=== PATIENT | female | born 1940 | race Caucasian/White ===

== ENCOUNTER 2017-05-23 15:17 | Inpatient (IN) | payer BC ==
[~2017-05-23] VITALS: Ht 160 cm; Wt 68.5 kg
[2017-05-23] MEDS ORDERED: INDERIDE 40/1 TABLET PO (17:01)
[2017-05-23] MEDS ORDERED: SYNTHROID50 MCG PO (17:01)
[2017-05-23] MEDS ORDERED: LEXAPRO5 MG PO (17:01)
[2017-05-23] MEDS ORDERED: PRILOSEC20 MG PO (17:02)
[2017-05-23] MEDS ORDERED: ASPIR 8181 M1 PO (17:02)
[2017-05-23] MEDS ORDERED: VITAMIN D31000 UNI2 PO (17:03)
[2017-05-23] MEDS ORDERED: VITAMIN E400 UNIT PO (17:03)
[2017-05-23 17:08] LABS: CHLORIDE 103 mEq/L (99-109)
[2017-05-23 17:09] LABS: POTASSIUM 4.4 mEq/L (3.7-5.4); SODIUM 139 mEq/L (136-147)
[2017-05-23 17:10] LABS: GLUCOSE 141 mg/dL (70-99)
[2017-05-23 17:12] LABS: ANION GAP 11 MEQ/L (2-14)
[2017-05-23 17:13] LABS: HEMATOCRIT 40.7 % (36.0-46.0); MCH 31.3 PG (29.0-34.0); MCHC 30.7 G/DL (30.0-36.0); MCV 101.8 FL (83-99); MEAN PLAT.VOLUME 9.5 uM^3 (9.5-12.4); PLATELET COUNT 141 K/uL (156-360); RBC DIS.WIDTH-CV 14.6 % (11.8-14.6); RBC DIS.WIDTH-SD 52.4 % (39-53)
[2017-05-23 17:14] LABS: GFR ESTIMATE (CALCULATED) > 59 mL/min/
[2017-05-23 17:15] LABS: UREA NITROGEN (BUN) 15 mg/dL (9-23); WHITE BLOOD COUNT 179.1 K/uL (4.1-10.2)
[2017-05-23 20:03] VITALS: BP 123/70
[2017-05-23 23:46] VITALS: BP 104/57
[2017-05-24 03:55] VITALS: BP 113/54
[2017-05-24 07:37] VITALS: BP 129/60
[2017-05-24 13:44] LABS: HEMATOCRIT 37.2 % (36.0-46.0); MCHC 30.4 G/DL (30.0-36.0); MCV 101.9 FL (83-99); MEAN PLAT.VOLUME 9.4 uM^3 (9.5-12.4); PLATELET COUNT 141 K/uL (156-360); RBC DIS.WIDTH-SD 52.6 % (39-53); RED BLOOD COUNT 3.65 M/uL (3.80-5.20)
[2017-05-24 13:45] LABS: INTER. NORMALIZED RATIO 1.1; PROTHROMBIN TIME 11.8 SEC (10.2-12.9)
[2017-05-24 14:47] VITALS: BP 125/66
[2017-05-24 15:29] VITALS: BP 122/68
[2017-05-24 19:33] VITALS: BP 106/57
[2017-05-25 00:03] VITALS: BP 108/55
[2017-05-25 03:26] VITALS: BP 104/55
[2017-05-25 07:44] VITALS: BP 125/63
[2017-05-25 17:10] VITALS: BP 147/85
[2017-05-25 23:11] VITALS: BP 118/58
[2017-05-26 07:46] VITALS: BP 145/66
[2017-05-26 16:45] VITALS: BP 153/71
[2017-05-27 00:09] VITALS: BP 114/62
[2017-05-27 07:24] VITALS: BP 131/74
[2017-05-27 07:45] VITALS: BP 131/74
[2017-05-27] MEDS ORDERED: FLEXERIL10 MG PO (07:52)
[2017-05-27] MEDS ORDERED: HYDROCODON-ACE1 EAC7 PO (07:52)
[2017-05-27 11:22] VITALS: BP 129/80
[2017-05-27 15:40] VITALS: BP 140/75
[2017-05-27 16:25] VITALS: BP 140/75
[2017-05-28 00:14] VITALS: BP 133/73
[2017-05-28 07:00] VITALS: BP 146/98
[2017-05-28 12:21] VITALS: BP 138/74
[2017-05-28] MEDS ORDERED: GABAPENTIN100 MG PO (12:59)
[2017-05-28 15:42] VITALS: BP 166/79
[2017-05-31 11:56] LABS: Ristocetin Cofactor Activity 158 % (42-200); VON WILLEBRAND FACTOR ANTIGEN 203 % (50-217); vWB APTT 24 sec (22-34)
== END 2017-05-28 19:05 | DRG 908 ==
LOC: EME 15:17 → 3EAST 16:38 → EDOF 16:38 → ENRESERV 17:06 → 3EAST 19:16
PROVIDERS: Anesthesiology; Emergency Medicine; Neurological Surgery
DX: M96.840 Postprocedural hematoma of a musculoskeletal structure following a musculoskeletal system procedure (principal); G95.29 Other cord compression; E03.9 Hypothyroidism, unspecified; M48.06 Spinal stenosis, lumbar region; C91.10 Chronic lymphocytic leukemia of B-cell type not having achieved remission; R20.0 Anesthesia of skin; M21.371 Foot drop, right foot; R26.2 Difficulty in walking, not elsewhere classified; M71.38 Other bursal cyst, other site; R53.1 Weakness
CPT/HCPCS: 72158; 80048; 83520 90; 85027; 85240 90; 85245 90; 85246 90; 85247 90; 85610; 85730 90; 94799; 97530 GP; 99281; 99284; J0330; J0690; J1100; J1170; J2270; J2405; J3010; J3370; J3480; J7030